=== PATIENT | male | born 2000 | race Caucasian/White ===

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

== ENCOUNTER 2022-02-27 17:41 | Emergency (ER) | payer BC ==
[~2022-02-27] VITALS: Ht 185.4 cm; Wt 73.6 kg
[2022-02-27] MEDS ORDERED: PROP10TA56 PO (18:03)
[2022-02-27] MEDS ORDERED: ZITHTAB PO (18:03)
[2022-02-27] MEDS ORDERED: SERT-141 PO (18:03)
[2022-02-27] MEDS ORDERED: IBUPROFEN 600MG TAB PO ONE (19:55)
[2022-02-27] MEDS ORDERED: LIDOCAINE 1% MDV 20ML VIAL SC ONE (21:45)
[2022-02-27 22:43] VITALS: BP 130/60
== END 2022-02-27 22:44 | disposition home or self-care (01) ==
LOC: M ED 17:41
DX: S61.411A Laceration without foreign body of right hand, initial encounter (principal); W22.8XXA Striking against or struck by other objects, initial encounter; Y92.89 Other specified places as the place of occurrence of the external cause